=== PATIENT | male | born 1990 | race Caucasian/White ===

== ENCOUNTER 2023-11-03 05:46 | Day surgery (SDC) | payer OTHER, SELFPAY ==
[2023-11-03] VITALS (11 sets, daily range): BP systolic 128–161; BP diastolic 71–97; PULSE 73–101; RESP 15–18; TEMP 36.3–36.4; O2SAT 94–99; BMI 38.5
--- NOTE | 2023-11-03 06:29 | XR_ITS ---
FINAL REPORT CLINICAL HISTORY: cough FINDINGS: The heart size is normal. The mediastinum is normal. There is mild linear atelectasis or scarring at the left lung base. The right lung is clear. There are no pleural effusions. There is no pneumothorax. There is no osseous abnormality. IMPRESSION: Mild linear atelectasis or scarring at the left lung base. Authenticated and ERN
--- NOTE | 2023-11-03 06:29 | ECG_ITS ---
APPROVED REPORT Exam: Resting ECG HR:78 bpm ECG Measurements Heart Rate 78 AXES DC 153 P 43 QRSd 89 QRS 21 QT 383 T 36 QTc 416 Conclusion SINUS RHYTHM Isolated Q in III-probable normal variant BORDERLINE ECG UNCONFIRMED REPORT Electronically signed by : Petr Morales MD 11/03/2023 12:24:36
[2023-11-03] MEDS: LACTATED RINGERS 1000ML 1,000 ML 25 ML IV (06:34)
[2023-11-03 06:39] LABS: Basophils # 0.1 K/mm3 (0-0.2); Eosinophils # 0.4 K/mm3 (0.0-0.4); Eosinophils % 5.8 % (0.1-12.0); Hematocrit 43.2 % (42.0-52.0); Hemoglobin 14.9 g/dL (14.1-18.0); Lymphocytes # 2.2 K/mm3 (0.7-4.5); Lymphocytes % 28.7 % (10-50); Mean Corpuscular HGB Conc 34.6 g/dL (31.8-35.4); Mean Corpuscular Hemoglobin 30.8 pg (27.0-31.2); Mean Platelet Volume 8.6 fl (7.4-10.4); Monocytes # 0.4 K/mm3 (0.1-1.0); Monocytes % 5.4 % (1.7-9.3); Neutrophils # 4.5 K/mm3 (1.8-7.8); Neutrophils % 59.1 % (37.0-80.0); Platelet Count 242 K/mm3 (142-424); Red Blood Count 4.85 M/mm3 (4.60-6.20); Red Cell Distribution Width 13.3 % (11.5-17.5); White Blood Count 7.7 K/mm3 (4.8-10.8)
[2023-11-03 06:55] LABS: Alanine Aminotransferase 52 U/L (12-78); Albumin Level 4.1 g/dl (3.5-5.0); Albumin/Globulin Ratio 1.4 (1.1-1.8); Alkaline Phosphatase 65 U/L (38-126); Anion Gap 12.8 mEq/L (5-15); Aspartate Amino Transferase 35 U/L (17-59); Bilirubin,Total 0.5 mg/dl (0.2-1.3); Blood Urea Nitrogen 15 mg/dl (9-20); Calcium 9.6 mg/dl (8.4-10.2); Carbon Dioxide 28 mmol/L (22.0-30.0); Chloride 102 mmol/L (98-107); Creatinine Clearance Estimated 205 mL/min (50-200); Estimated Glomerular Filt Rate 113 ml/min (>60); GFR (African American) 136 ML/MIN (>60); Globulin 2.9 g/dL (1.3-3.2); Glucose 108 mg/dl (74-100); Potassium 3.8 mmoL/L (3.5-5.1); Sodium 139 mmol/L (136-145)
--- NOTE | 2023-11-03 07:08 | EXP.ANES.CKL ---
[facility] Disclaimer: The information contained in this section may have been updated after the patient was seen, as this information can be updated by other users. Surgical History History of surgery History of surgical removal of ganglion cyst Family History (Updated 11/03/23 @ 06:18 by Joseline Dickinson RN) Other No significant family history Social History (Updated 11/03/23 @ 06:18 by Joseline Dickinson RN) Smoking Status: Former smoker alcohol intake: current substance use type: marijuana current occupational status: employed Travel in the last 8 weeks: None [facility] Anesthesia Checklist Patient Identification Patient Identification: Arm Band and Family Structural Data Admitted From: Home Planned Operative Procedure/s: Plantar Fascia resection (Right) Consent for Planned Operative Procedure(s) Verified: Yes Verified Documents: Surgical Consent and History and Physical NPO Status Verified Time NPO: 00:00 Additional verifications Anesthesia Reactions: No Hx Blood Transfusions: No Blood Transfusion Reaction: No Cephalosporin Allergy: No Previous Colonoscopy: No Airway Assessment Mallampati Score:: Class I C-Spine Mobility Assessed: Yes TMJ Mobility Assessed: Yes Dentition: Good Dentition Neurological Assessment Level of Consciousness: Awake, Alert, Appropriate and Follows Commands Hx Seizures: No Numbness or tingling in extremities: No Anesthesia Plan Anesthesia Risk discussed: Yes ASA Class: I Anesthesia Type: General
--- NOTE | 2023-11-03 07:11 | SUR.PREOP ---
Dr. Aguero and chidi Dominguez DIRECTOR OF PATIENT CARE reviewed EKG and ok to proceed
--- NOTE | 2023-11-03 09:05 | EXP.ANES.I ---
[facility] Anesthesia Record Part I Anesthesia Record I Intake, IV Amount: 1,000 Hydration: Adequate Estimated blood loss (mL): 0 Urine output (mL): 0 Blood Products used (#): none Blood Pressure: 156/85 SaO2: 94 Pulse Rate: 101 Airway Patency: Patent Respiratory Rate: 18 Temperature: 97.5 F Patient is:: Drowsy and Stable Stable to PACU at:: 08:48
--- NOTE | 2023-11-03 09:33 | P.OP_ITS ---
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 I reviewed his history with the patient there noted no changes since his examination with me and reviewed consent. Patient is very stable and he is also examined and evaluated by anesthesia department. He is having no heart conditions is able to walk up stairs and ambulate and run according to the patient without any kind of d istress ever. And he has no history of any kind of myocardial affects ever. We are recommending no that he do see his primary doctor for the next couple of weeks just for a full workup based on an abnormal EKG. The patient was still deemed medically appropriate for surgery with no contraindications at this time. Reviewed consent with the patient and answered all questions the patient has. His mother is with him today. He lives with her and will be able to be managed and cared for for the next few weeks while he is nonweightbearing. He does have a knee scooter and has already practiced using it. Patient wants to proceed with surgery. Foot was marked and the patient was wheeled to the operating room and left on the supine position and transferred to the operating room table. The patient received anesthesia; then the right foot was scrubbed prepped and draped in the usual aseptic manner. Attention was directed to the plantar aspect of the patient's foot and a Lazy Curvi-linear incision was made in line with the plantar fascia, with center located medial with the large fibromatous mass, using a scalpel blade. Incision was then deepened through subcutaneous tissues with blunt and sharp dissection being careful to preserve and protect vital neural and vascular structures. A tissue plane interval was then created from medial to lateral the subcutaneous fat from the plantar fascia and the plantar fascia from the intrinsic musculature above. At this point resected a large section of the medial band of the plantar fascia, including the large fibroma, with Vo scissors and sent post operatively for gross analysis pathology. Irrigated with copious bouts of sterile normal saline; and then closed the wound with 2-0 Vicryl and 2-0 and 3-0 nylon in mattress suture technique. Tourniquet time (min): 42 Condition: stable Disposition: PACU Specimens:: Right foot plantar fascia/fibroma Complications:: negative
--- NOTE | 2023-11-03 12:07 | P.PNANES_ITS ---
[facility] Anesthesia Record Part II Anesthesia Record Part II Discharge Time: 09:28 Destination: Surgical Day Care (OP Surgery) PACU nurse assessment reviewed?: Yes Patient Condition:: Good Anesthesia Complications:: None Swallowing reflex intact?: Yes Airway Patency: Patent Cyanosis?: No Blood Pressure: 146/71 SaO2: 98 Respiratory Rate: 15 Pulse Rate: 75 Temperature: 97.4 F Mental Status: Alert & Oriented Pain level:: 0 Nausea and/or vomitting:: None Intake, IV Amount: 0 Hydration: Adequate
--- NOTE | 2023-11-03 12:55 | P.PNANES_ITS ---
[facility] Anesthesia Record Part I Anesthesia Record I Intake, IV Amount: 900 Hydration: Adequate Estimated blood loss (mL): 0 Urine output (mL): 0 Blood Products used (#): none Blood Pressure: 107/81 SaO2: 95 Pulse Rate: 99 Airway Patency: Patent Respiratory Rate: 14 Temperature: 98.3 F Patient is:: Drowsy and Stable Stable to PACU at:: 12:47
== END 2023-11-03 10:05 | disposition home or self-care (01) ==
PROVIDERS: Visit Provider Podiatrist
PROC: (CPT 28062; principal; 2023-11-03 07:30)
DX: M72.2 Plantar fascial fibromatosis (principal)
CPT/HCPCS: 28062; 71045; 80053; 85025; 93005; J2405